=== PATIENT | male | born 1985 | race Caucasian/White ===

== ENCOUNTER 2024-05-01 06:45 | Emergency (ER) | payer SELFPAY ==
[2024-05-01 06:46] VITALS: BMI 20.5
[2024-05-01 06:53] VITALS: BP 159/105; BP 167/108; PULSE 87; RESP 18; TEMP 36.8; O2SAT 97
--- NOTE | 2024-05-01 07:16 | PD.EDURI ---
Upper Respiratory Inf. RME/HPI General Chief Complaint: Flu Like Symptoms Stated Complaint: FLU LIKE SYMPTOMS Time Seen by Provider: 05/01/24 06:51 Arrival date/time: 05/01/24 06:45 This is a 38-year-old male that was complaining of upper respiratory symptoms approximately 5 days ago. Patient states that he started feeling better but this morning started having a sore throat. Patient denies any past medical history. Related Data Previous Rx's ?Medication ?Instructions ?Recorded amoxicillin 875 mg-potassium 1 tab PO BID 7 days #14 tabs 05/01/24 clavulanate 125 mg tablet ibuprofen 800 mg tablet 800 mg PO Q6H PRN pain #14 tabs 05/01/24 Allergies Allergy/AdvReac Type Severity Reaction Status Date / Time Sulfa (Sulfonamide Allergy Mild Rash Verified 05/01/24 07:33 Antibiotics) Course Orders Category Date Time Status Amoxicillin/Pot Clav 875 [Augmentin 875] Med 05/01/24 07:17 Discontinued 1 tab PO X1 ONE Ibuprofen Tab [Motrin Tab] Med 05/01/24 07:17 Discontinued 800 mg PO X1 ONE Vital Signs Vital signs: Vital Signs Temperature 98.3 F 05/01/24 06:53 Pulse Rate 87 05/01/24 06:53 Respiratory Rate 18 05/01/24 06:53 Blood Pressure 167/108 H 05/01/24 06:53 Pulse Oximetry (%) 97 05/01/24 06:53 Oxygen Delivery Method Room Air 05/01/24 06:53 Upper Respiratory Infection MDM Narrative MDM Narrative:: Influenza negative. Patient posterior pharynx erythemic and appears to have tonsillar stones. Will treat for infection. Patient is to follow-up with primary provider in 1 to 2 days. Come back to the emergency room symptoms change or worsen. Medications / Prescriptions Medication administrations:: Medication Administration History Discontinued Medications Amoxicillin/Clavulanate Potassium (Amoxicillin/Pot Clav 875 Tablet) 1 tab PO X1 ONE Stop: 05/01/24 07:18 Last Admin: 05/01/24 07:30 Dose: 1 tab Documented By: SOURAV Ibuprofen (Ibuprofen Tab 400 Mg Tablet) 800 mg PO X1 ONE Stop: 05/01/24 07:18 Last Admin: 05/01/24 07:31 Dose: Not Given Documented By: SOURAV Non-Admin Reason: Patient Refused Discharge Plan Plan Patient Disposition: HOME (Self Care) Patient condition on transfer: Stable Prescriptions/Referrals Prescriptions/Med Rec: New ibuprofen 800 mg tablet 800 mg PO Q6H PRN (Reason: pain) Qty: 14 0RF amoxicillin-pot clavulanate 875-125 mg tablet 1 tab PO BID 7 Days Qty: 14 0RF Problem List Clinical Impression: Acute bacterial tonsillitis Patient/Caregiver Discharge Instructions Discharge Activity: activity as tolerated Education Materials: Tonsillitis in Adults Additional Instructions: Get plenty of rest and fluids. Follow up with primary provider in 1-2 days. Come back to ED if symptoms change or worsen Print Language: [place] Stand Alone Forms: Vickie Award Info., Patient Portal Info Letter PA/COURT MANAGER Supervising Physician PA/COURT MANAGER Supervising Physician: [email or web address]
[2024-05-01] MEDS: AMOXICILLIN/POT CLAV 875 TABLET 1 TAB PO (07:30)
== END 2024-05-01 19:55 | disposition home or self-care (01) ==
LOC: SERX 07:54
PROVIDERS: Emergency Provider Family Medicine; PCP Family Medicine
DX: J03.90 Acute tonsillitis, unspecified (principal)
CPT/HCPCS: 87400; 99282; A9270